=== PATIENT | female | born 1950 | race Caucasian/White ===

== ENCOUNTER 2025-05-20 14:51 | Outpatient (AMB) | payer MEDICARE, SELFPAY ==
--- NOTE | 2025-05-20 14:51 | HO.NEPHOV ---
Vital Signs 05/20/25 14:52 Height 5 ft 1 in Weight 122 lb BMI 23.0 BP 142/72 H Blood Pressure Location Lt brachial Position Sitting Pulse 88 Pulse Source Pulse Oximeter Pulse Oximetry (%) 97 Oxygen Delivery Method Room Air Intake Visit Reasons: ENP: CKD STAGE 3- Confirmed Drupal Php Developer Required: No Accompanied by: Self / Same As Patient Allergies labetalol Allergy (Unknown, Verified 05/20/25 14:55) asthma lisinopril Allergy (Unknown, Verified 05/20/25 14:55) Swelling spironolactone Allergy (Unknown, Verified 05/20/25 14:55) Unknown Medication List - Last Reconciled 05/20/25 by Rey Natarajan MD aspirin 81 mg PO DAILY calcium carbonate-vitamin D3 500 mg-10 mcg (400 unit) 1 tab PO BID carbamazepine 200 mg PO DAILY duloxetine 30 mg PO DAILY empagliflozin (Jardiance) 25 mg PO QAM famotidine 40 mg PO DAILY metformin 1,000 mg PO BID nateglinide 120 mg PO TID nifedipine ER 90 mg PO DAILY rosuvastatin 40 mg PO DAILY telmisartan 40 mg PO DAILY HPI Comments Details: - The patient is a 74-year-old female presenting with chronic kidney disease. - Chronic kidney disease managed by reexaminer for years at [place]. - Renal artery stent placed 8 years ago for hypertension. - Blood pressure control variable, occasional orthostatic symptoms. - Diabetes mellitus for 20-30 years, well-controlled. - History of asthma, currently inactive. - No other cardiac or pulmonary issues reported. - Medications include Jardiance, metformin, nifedipine, rosuvastatin, telmisartan, carbamazepine. - Last kidney ultrasound over a year ago, recent labs lacked kidney function tests. [facility] Medical History (Updated 05/20/25 @ 15:05 by Rey Natarajan MD) Left carotid artery stenosis Renal artery stenosis Stage 3 chronic kidney disease Osteoarthritis of glenohumeral joint Essential hypertension Dyslipidemia Type 2 diabetes mellitus without complication, without long-term current use of insulin Review of Systems Const Denies fever(s) and Denies weight loss Card Denies chest pain Resp Denies cough and Denies hemoptysis GI Denies abdominal pain, Denies diarrhea and Denies nausea Musc Denies back pain Neuro Denies focal weakness Physical Exam Vital Signs: Last Vital Signs Pulse 88 05/20/25 14:52 BP 142/72 H 05/20/25 14:52 Pulse Ox 97 05/20/25 14:52 Oxygen Delivery Method Room Air 05/20/25 14:52 BMI result Body Mass Index 23.0 Comfortable Neck supple no JVD. Lungs entry equal no rales. Heart S1-S2 heard no gallop or rub. Abdomen soft nontender. Neuro alert awake oriented. No asterixis. Extremities no edema. Results Reviewed Results Reviewed: Pending Assessment & Plan Assessment & Plan (1) Renal artery stenosis: Code(s): I70.1 - Atherosclerosis of renal artery Category: Medical (2) HTN (hypertension): Code(s): I10 - Essential (primary) hypertension Category: Medical (3) Stage 3 chronic kidney disease: Code(s): N18.30 - Chronic kidney disease, stage 3 unspecified Category: Medical Plan Elderly woman with a history of hypertension with renal artery stenosis and chronic kidney disease Status post stent placement on right renal artery and about 8 years ago. Initiated a baseline workup. Check basic renal panel Obtain Doppler of renal arteries. At present blood pressure is well controlled Encouraged her to stay on low-sodium diet. No changes were made to her medications today. Goal is to slow the progression of renal disease Continue to avoid nephrotoxic agents including NSAIDs Further workup will depend on the outcome of the baseline investigations. I have reassured her and answered all her questions. She returned to the office in the next few weeks and I will keep you updated. Orders: Orders Parathyroid Hormone Intact Today I10 - Essential (primary) hypertension, I70.1 - Atherosclerosis of renal artery UA and rflx microscopic Today I10 - Essential (primary) hypertension, I70.1 - Atherosclerosis of renal artery Total Protein Urine Random Today I10 - Essential (primary) hypertension, I70.1 - Atherosclerosis of renal artery Basic Metabolic Panel Today I10 - Essential (primary) hypertension, I70.1 - Atherosclerosis of renal artery Complete Blood Count no Diff Today I10 - Essential (primary) hypertension, I70.1 - Atherosclerosis of renal artery Creatinine Urine Today I10 - Essential (primary) hypertension, I70.1 - Atherosclerosis of renal artery Phosphorus Today I10 - Essential (primary) hypertension, I70.1 - Atherosclerosis of renal artery US renal doppler Today I10 - Essential (primary) hypertension, I70.1 - Atherosclerosis of renal artery Coding Level of Care Code New Pt Level 4 (34118) Diagnoses Renal artery stenosis I70.1 HTN (hypertension) I10 Stage 3 chronic kidney disease N18.30
[2025-05-20 14:52] VITALS: BP 142/72; PULSE 88; O2SAT 97; BMI 23.0
== END 2025-05-20 15:13 | disposition home or self-care (01) ==
LOC: HO.HKAE 14:51
PROVIDERS: PCP Student in an Organized Health Care Education/Training Program; Visit Provider Internal Medicine Hypertension Specialist
DX: I70.1 Atherosclerosis of renal artery (principal); I10 Essential (primary) hypertension; N18.30 Chronic kidney disease, stage 3 unspecified
CPT/HCPCS: 99204

== ENCOUNTER → 2025-05-20 14:51 | Outpatient (BNVA) | payer MEDICARE, SELFPAY | PROVIDERS: PCP Student in an Organized Health Care Education/Training Program; Visit Provider Internal Medicine Hypertension Specialist | DX: I10 Essential (primary) hypertension (principal); I70.1 Atherosclerosis of renal artery; N18.30 Chronic kidney disease, stage 3 unspecified | CPT/HCPCS: 99202 ==

== ENCOUNTER 2025-06-24 14:55 | Outpatient (AMB) | payer MEDICARE, SELFPAY ==
[2025-06-24 14:55] VITALS: BP 170/68; PULSE 75; O2SAT 98; BMI 23.6
--- NOTE | 2025-06-24 14:55 | HO.NEPHOV ---
Vital Signs 06/24/25 14:55 06/24/25 15:09 Height 5 ft 1 in Weight 125 lb BMI 23.6 BP 170/68 H 150/70 H Blood Pressure Location Lt brachial Lt brachial Position Sitting Sitting Pulse 75 Pulse Source Pulse Oximeter Pulse Oximetry (%) 98 Oxygen Delivery Method Room Air Intake Visit Reasons: 4-6wk f/u w/labs Podiatric Foot And Ankle Specialist Required: No Accompanied by: Self / Same As Patient Allergies labetalol Allergy (Unknown, Verified 06/24/25 14:57) asthma lisinopril Allergy (Unknown, Verified 06/24/25 14:57) Swelling spironolactone Allergy (Unknown, Verified 06/24/25 14:57) Unknown Medication List - Last Reconciled 06/24/25 by Rey Natarajan MD aspirin 81 mg PO DAILY calcium carbonate-vitamin D3 500 mg-10 mcg (400 unit) 1 tab PO BID carbamazepine 200 mg PO DAILY duloxetine 30 mg PO DAILY empagliflozin (Jardiance) 25 mg PO QAM famotidine 40 mg PO DAILY metformin 1,000 mg PO BID nateglinide 120 mg PO TID nifedipine ER 90 mg PO DAILY rosuvastatin 40 mg PO DAILY telmisartan 40 mg PO DAILY HPI Comments Details: - The patient is a 74-year-old female presenting with chronic kidney disease. - Chronic kidney disease managed by hat marker for years at [place]. - Renal artery stent placed 8 years ago for hypertension. - Blood pressure control variable, occasional orthostatic symptoms. - Diabetes mellitus for 20-30 years, well-controlled. - History of asthma, currently inactive. - No other cardiac or pulmonary issues reported. - Medications include Jardiance, metformin, nifedipine, rosuvastatin, telmisartan, carbamazepine. - Last kidney ultrasound over a year ago, recent labs lacked kidney function tests. 06/24/25 The patient is a 74-year-old female presenting with hypertension and renal artery stenosis. Her blood pressure was noted to be elevated at 160/60 mmHg during the visit, and she is currently on maximum doses of nifedipine and telmisartan. She reports occasional lightheadedness upon standing, indicative of orthostatic hypotension, which she manages by sitting down slowly. The patient has undergone an ultrasound which showed both renal arteries are open with no restenosis, indicating stable renal artery stenosis. Her creatinine level was measured at 1.2 mg/dL, which is being monitored for any changes. She is currently taking Jardiance, nifedipine, and telmisartan as part of her medication regimen. The patient checks her blood pressure at home occasionally, with recent readings around 150-160/78 mmHg, which she and the physician agree could be improved. [facility] Medical History (Updated 05/20/25 @ 15:05 by Rey Natarajan MD) Left carotid artery stenosis Renal artery stenosis Stage 3 chronic kidney disease Osteoarthritis of glenohumeral joint Essential hypertension Dyslipidemia Type 2 diabetes mellitus without complication, without long-term current use of insulin Physical Exam Vital Signs: Last Vital Signs Pulse 75 06/24/25 14:55 BP 150/70 H 06/24/25 15:09 Pulse Ox 98 06/24/25 14:55 Oxygen Delivery Method Room Air 06/24/25 14:55 BMI result Body Mass Index 23.6 Comfortable Neck supple no JVD. Lungs entry equal no rales. Heart S1-S2 heard no gallop or rub. Abdomen soft nontender. Neuro alert awake oriented. No asterixis. Extremities no edema. Results Reviewed Results Reviewed: Creatinine 1.2 Assessment & Plan Assessment & Plan (1) Renal artery stenosis: Code(s): I70.1 - Atherosclerosis of renal artery Category: Medical (2) HTN (hypertension): Code(s): I10 - Essential (primary) hypertension Category: Medical (3) Stage 3 chronic kidney disease: Code(s): N18.30 - Chronic kidney disease, stage 3 unspecified Category: Medical Plan Elderly woman with a history of hypertension with renal artery stenosis and chronic kidney disease Status post stent placement on right renal artery and about 8 years ago. Serum creatinine 1.2. His probably her baseline. Doppler ultrasonogram revealed less than 60% stenosis. No definite to hemodynamically significant narrowing. Encouraged her to stay on low-sodium diet. Encouraged to monitor blood pressure at home and to call me if systolic blood pressure stays above 140 No changes were made to her medications today. Goal is to slow the progression of renal disease Continue to avoid nephrotoxic agents including NSAIDs Orders: Orders Basic Metabolic Panel Today I10 - Essential (primary) hypertension, N18.30 - Chronic kidney disease, stage 3 unspecified Medications: New hydralazine 10 mg PO BID 60 tabs 1RF Coding Level of Care Code Est Pt Level 4 (20705) Diagnoses Renal artery stenosis I70.1 HTN (hypertension) I10 Stage 3 chronic kidney disease N18.30
[2025-06-24 15:09] VITALS: BP 150/70
--- OUTSIDE RECORDS SUMMARY | 2025-06-24 18:17 | XMS_ITS | Clinical Summary ---
Author Organization [facility] Address [address] [place] [address] Care Team Providers Care Cardiovascular Disease Specialist Name Role Phone Cony Dillon MD Primary Care Provider [phone] Allergies Active Allergy Reactions Criticality Noted Date Comments Lisinopril Swelling Medium 04/25/2016 Medications ONETOUCH VERIO strip 03/10/2016 Active INSULIN DETEMIR 100 UNIT/ML pen injection INJECT 36 UNITS ONCE DAILY PER SLIDING SCALE 3 04/08/2016 Active ketoconazole (NIZORAL) 2 % cream 03/10/2016 Active metFORMIN (GLUCOPHAGE) 1000 MG tablet TAKE 1 TABLET TWICE A DAY WITH MORNING AND EVEING MEALS 3 03/28/2016 Active nateglinide (STARLIX) 120 MG tablet TAKE 1 TABLET THREE TIMES A DAY 1 TO 30 MINUTES PRIOR TO MEALS 3 03/28/2016 Active NIFEdipine ER (ADALAT CC) 90 MG 24 hr tablet Take 90 mg by mouth daily. 3 03/07/2016 Active rosuvastatin (CRESTOR) 40 MG tablet 04/16/2016 Active spironolactone (ALDACTONE) 25 MG tablet Take 25 mg by mouth daily. 3 01/18/2016 Active spironolactone (ALDACTONE) 50 MG tablet 03/10/2016 Active telmisartan-hyd rochlorothiazid e (MICARDIS HCT) 40-12.5 MG per tablet Take 1 tablet by mouth daily. 3 03/29/2016 Active carBAMazepine (TEGretol) 200 MG tablet Take 200 mg by mouth 3 (three) times a day. Active aspirin enteric coated (ECOTRIN LOW STRENGTH) 81 MG EC tablet Take 81 mg by mouth daily. Active [place] 5-Erngci-Zjkhuc thin ([facility]) 250-2.5-0.5 MG Cap Take by mouth. Active Social History Tobacco Use Types Packs/Day Years Used Date Smoking Tobacco: Never Alcohol Use Standard Drinks/Week Comments No 0 (1 standard drink = 0.6 oz pur e alcohol) Comments Unknown Sex and Gender Information Value Date Recorded Sex Assigned at Not on file Legal Sex Female 11:46 AM EDT Gender Identity Not on file Sexual Orientation Not on file Last Filed Vital Signs Vital Sign Reading Time Taken Comments Blood Pressure 161/93 04/25/2016 2:47 PM EDT Pulse 92 04/25/2016 2:47 PM EDT Temperature - - Respiratory Rate - - Oxygen Saturation - - Inhaled Oxygen Concentration - - Weight 68 kg (150 lb) 04/25/2016 2:47 PM EDT Height 157.5 cm (5' 2 ) 04/25/2016 2:47 PM EDT Body Mass Index 27.44 04/25/2016 2:47 PM EDT Plan of Treatment Health Maintenance Due Date Last Done Comments Advance Care Planning 1950 Hepatitis C Virus Screening 1950 DTaP/Tdap/Td Vaccines (1 - Tdap) 1968 Mammogram 1989 Colonoscopy 1994 Pneumococcal Vaccines 50+ (1 of 1 - PCV) 11/24/1999 Zoster (Shingles) Vaccine (1 of 2) 11/24/1999 DXA Bone Density (Females,Ag es 65 and older) 2014 RSV Vaccine 50 years and old er and Patients (1 - 1-dose 75+ series) 2024 Influenza Vaccine 03/13/2025 COVID-19 Vaccine ( - 2023-2 5 season) 2025 Hepatitis B Vaccines Aged Out No long er eligible based on patient's age to complete this topic Procedures Procedure Name Priority Date/Time Associated Diagnosis Comments US KIDNEY WITH DOPPLER Routine 05/29/2025 4:14 PM EDT from Last 3 Months Results * US KIDNEY WITH DOPPLER (05/29/2025 4:14 PM EDT) Anatomical Region Laterality Modality Other 05/29/2025 2:45 PM EDT 05/29/2025 2:45 PM EDT Narrative 06/01/2025 1:18 PM EDT EXAMINATION: US RENAL ARTERY DOPPLER CLINICAL INFORMATION: Renal artery stenosis. COMPARISON: None. TECHNIQUE: Renal ultrasound. Doppler ultrasound (spectral analysis and color Doppler) of the renal arteries and aorta were performed. FINDINGS: The right kidney measures 7.6, 3.7, 3.3 cm in sagittal, AP and transverse dimensions. Increased echogenicity. 1.9 cm simple cyst in the lower pole. The left kidney measures 10.3, 5.0, 4.4 cm in sagittal, AP and transverse dimensions. The kidneys show no masses, calculi or hydronephrosis. The corticomedullary differentiation is normal. RENAL ARTERY VELOCITIES: Right: Proximally: 61. Mid: 49. Distal: 44. Left: Proximally: 49. Mid: 191. Distally: 309. SEGMENTAL RESISTIVE INDICES: Right: Upper: 0.7 Mid: 0.8 Lower: 0.7 Left: Upper: 0.7 Mid: 0.8 Lower: 0.7 MID AORTIC VELOCITY: 98 cm/s. RENAL AORTIC RATIOS: Right: 0.6 Left: 3.1 Technologist: Sofia IMPRESSION: 1. Increased echogenicity of the right kidney likely related to medical renal disease. 2. Increased velocities in the mid to distal segments of the left renal artery may be related to less than 60% stenosis. No parvus tardus waveforms in the segmental arteries. Electronically signed by: Navarro Ayon DO 06/01/2025 01:18 PM EDT Thank you for referring your patient to us, Navarro Ayon MD [phone] (Electronically Signed - 06/01/2025 13:18) Procedure Note Mal Ayon DO - 06/01/2025 EXAMINATION: US RENAL ARTERY DOPPLER CLINICAL INFORMATION: Renal artery stenosis. COMPARISON: None. TECHNIQUE: Renal ultrasound. Doppler ultrasound (spectral analysis and color Doppler)of the renal arteries and aorta were performed. FINDINGS: The right kidney measures 7.6, 3.7, 3.3 cm in sagittal, AP and transversedimensions. Increased echogenicity. 1.9 cm simple cyst in the lowerpole. The left kidney measures 10.3, 5.0, 4.4 cm in sagittal, AP and transversedimensions. The kidneys show no masses, calculi or hydronephrosis. Thecorticomedullary differentiation is normal. RENAL ARTERY VELOCITIES: Right: Proximally: 61. Mid: 49. Distal: 44. Left: Proximally: 49. Mid: 191. Distally: 309. SEGMENTAL RESISTIVE INDICES: Right: Upper: 0.7 Mid: 0.8 Lower: 0.7 Left: Upper: 0.7 Mid: 0.8 Lower: 0.7 MID AORTIC VELOCITY: 98 cm/s. RENAL AORTIC RATIOS: Right: 0.6 Left: 3.1 Technologist: Sofia IMPRESSION: 1. Increased echogenicity of the right kidney likely related to medicalrenal disease. 2. Increased velocities in the mid to distal segments of the left renalartery may be related to less than 60% stenosis. No parvus tarduswaveforms in the segmental arteries. Electronically signed by: Navarro Ayon DO 06/01/2025 01:18 PM EDT RPWorkstation: [id number] Thank you for referring your patient to us, Navarro Ayon MD [phone] (Electronically Signed - 06/01/2025 13:18) Rey Natarajan MD IMG LEGACY PROCEDURES Final Re sult from Last 3 Months Insurance [facility] MEDICARE Care Teams Cardiovascular Disease Specialist Relationship Specialty Start Date End Date Cony Dillon MD [address] [place] [id number] PCP - General 03/07/16
--- OUTSIDE RECORDS SUMMARY | 2025-06-24 18:17 | XMS_ITS | Encounter Summary ---
Author Organization [facility] Address [address] [place] [address] Care Team Providers Care Subpoena Server Name Role Phone Cony Dillon MD Primary Care Provider [phone] Linda Ayon MD Unavailable Mary Simon MD Unavailable [phone] MetersRm palomares MD Unavailable [phone] Cony Dillon MD Unavailable [phone] Barbara Olivares MD Primary Care Provider [phone] Encounter Details Date Type Department Care Team (Late st Contact Info) Description 11/07/2021 Orders Only [facility] Department of Nephrology [address] [facility] [place] [address] Delmy Mcmullen MD Social History Tobacco Use Types Packs/Day Years Used Date Smoking Tobacco: Never Smokeless Tobacco: Never Alcohol Use Standard Drinks/Week Comments No 0 (1 standard drink = 0.6 oz pur e alcohol) PHQ-2 Answer Date Recorded PHQ-2 Score 0 12/16/2020 Comments No Sex and Gender Information Value Date Recorded Sex Assigned at Female 10/26/2023 11:07 AM EDT Legal Sex Female 2:23 AM EST Gender Identity Female 10/26/2023 11:07 AM EDT Sexual Orientation Straight 10/26/2023 11 :07 AM EDT Occupation Industry Job Start Date Job End Date Retired Not on file Not on file Not on file COVID-19 Exposure Response Date Recorded In the last 10 days, have yo u been in contact with someone who was confirmed or suspected to have Coronavirus/COVID-19? No / Unsure 10/31/2021 1:08 PM EDT documented as of this encounter Plan of Treatment Not on file documented as of this encounter Visit Diagnoses Not on filedocumented in this encounter Additional Health Concerns Infection Onset Date Last Indicated Resolved Time (Rule out) Influenza 06/07/2024 06/07/2024 024 11:06 PM EDT (Rule out) RSV 06/07/2024 06/07/2024 06/07/2024 11 :06 PM EDT (Rule out) COVID-19 06/07/2024 06/07/2024 06/07/20 24 11:06 PM EDT documented as of this encounter Care Teams Subpoena Server Relationship Specialty Start Date End Date Cony Dillon MD [address] [facility] [place] [address] PCP - General 10/24/17 11/12/24 Cony Dillon MD [address] [facility] [place] [address] PCP - Insurance Payer PCP 05/18/23 Barbara Olivares MD [address] [place] [address] PCP - General Family Medicine 11/13/24 Linda Ayon MD [address] [facility] [place] [address] Consulting Physician Cardiology 04/19/20 Mary Simon MD [address] [facility] [place] [phone] Consulting Physician Endocrinology 04/19/20 Rm Avery MD [address] [facility] [address] Consulting Physician Pulmonary Disease 04/19/20 documented as of this encounter
--- OUTSIDE RECORDS SUMMARY | 2025-06-24 18:17 | XMS_ITS | Encounter Summary ---
Author Organization [facility] Address [address] [place] [address] Care Team Providers Care Press Operator Printing Name Role Phone Cony Dillon MD Primary Care Provider [phone] Linda Ayon MD Unavailable Mary Simon MD Unavailable [phone] MetersRm palomares MD Unavailable [phone] Cony Dillon MD Unavailable [phone] Barbara Olivares MD Primary Care Provider Encounter Details Date Type Department Care Team (Late st Contact Info) Description 05/17/2021 Orders Only [facility] Department of Internal Medicine [address] [place], [place] [id number] Cony Dillon MD [address] [facility] - INTER[facility] MEDICINE [place], [place] [id number] Upper respiratory tract infection, unspecified type (Primary Dx) Social History Tobacco Use Types Packs/Day Years [...] file Not on file Not on file documented as of this encounter Plan of Treatment Not on file documented as of this encounter Results * SARS-CoV-2, NAAT (05/18/2021 8:17 AM EDT) SARS-CoV-2 TMA ([place]) Not Detected Not Detected 05/18/2021 3:09 PM EDT [facility] Comment: This test has not been FDA cleared or approved. This test has been authorized by the FDA under an EUA for use by authorized laboratories. Testing is limited to laboratories certified under the Clinical Laboratory Improvement Amendments of 1988 (CLIA), 42 U.S.C. 263a, to perform high complexity tests. The test is only authorized for the duration of the declaration that circumstances exist justifying the authorization of emergency use of in vitro diagnostic tests for detection and/or diagnosis of COVID-19 under Section 564(b)(1) of the Act, 21 U.S.C. 360bbb-3(b)(1), unless the authorization is terminated or revoked sooner. The Aptima SARS-CoV-2 Assay is a nucleic acid amplification test intended for the qualitative detection of nucleic acid of SARS-CoV-2 in nasal and nasopharyngeal swab specimens from patients suspected of COVID-19. Positive results are indicative of the presence of SARS-CoV-2 RNA; clinical correlation with patient history and other diagnostic information is necessary to determine patient infection status. Positive results do not rule out bacterial infection or co-infection with other viruses. A negative result does not rule out COVID-19 and should not be used as the sole basis for treatment or patient management decisions. Negative results must be combined with clinical observations, patient history, and epidemiological information. Fact Sheets for this Emergency Use Authorization assay can be found at the following links: For Healthcare providers: [email or web address].[employer]/sites/default/[email or web address] -Apti [email or web address] For Patients: [email or web address]/sites/default/[email or web address] [email or web address] Swab Nasopharyngeal structure / Unknown Non-blood Collection / Unknown 05/18/2021 8:17 AM EDT 05/18/2021 8:17 AM EDT Cony Dillon MD LAB MICRO - GENERAL ORDERABLE S NO STAT Final Result [facility] [address] [place] [address], documented in this encounter Visit Diagnoses Diagnosis Upper respiratory tract infection, unspecified type- Primary documented in this encounter Additional Health Concerns Infection Onset Date Last Indicated Resolved Time (Rule out) COVID-19 05/17/2021 05/18/2021 05/18/20 21 3:09 PM EDT (Rule out) COVID-19 09/29/2021 09/29/2021 10/03/19 22 10:08 PM EST (Rule out) Influenza 06/07/2024 06/07/2024 024 11:06 PM EDT (Rule out) RSV 06/07/2024 06/07/2024 06/07/2024 11 :06 PM EDT (Rule out) COVID-19 06/07/2024 06/07/2024 06/07/20 24 11:06 PM EDT documented as of this encounter Care Teams Press Operator Printing Relationship Specialty Start Date End Date Cony Dillon MD [address] [place] [address] [place] [address] PCP - General 10/24/17 11/12/24 Cony Dillon MD [address] [place] [address] [place] [address] PCP - Insurance Payer PCP 05/18/23 Barbara Olivares MD [address] [place], [place] [id number] PCP - General Family Medicine 11/13/24 Linda Ayon MD [address] [place], [place] [address] [phone] Consulting Physician Cardiology 04/19/20 Mary Simon MD [address] [place] [address] [address] Consulting Physician Endocrinology 04/19/20 Rm vAery MD [address] [place] [address] [address] Consulting Physician Pulmonary Disease 04/19/20 documented as of this encounter
--- OUTSIDE RECORDS SUMMARY | 2025-06-24 18:17 | XMS_ITS | Encounter Summary ---
Author Organization [facility] Address [address] [place] [address] Care Team Providers Care Maintenance Apprentice Name Role Phone Cony Dillon MD Primary Care Provider [phone] Encounter Details Date Type Department Care Team (Late st Contact Info) Description 03/15/2016 Scanned Document [facility] Urologic Surgery [address] [place] [address] Yung Proctor MD Social History Tobacco Use Types Packs/Day Years Used Date Smoking Tobacco: Never Assessed Comments Unknown Sex and Gender Information Value Date Recorded Sex Assigned at Not on file Legal Sex Female 11:46 AM EDT Gender Identity Not on file Sexual Orientation Not on file documented as of this encounter Plan of Treatment Not on file documented as of this encounter Visit Diagnoses Not on filedocumented in this encounter Care Teams Maintenance Apprentice Relationship Specialty Start Date End Date Cony Dillon MD [address] [place] [address] PCP - General 03/07/16 documented as of this encounter
--- OUTSIDE RECORDS SUMMARY | 2025-06-24 18:17 | XMS_ITS | Encounter Summary ---
Author Organization [facility] Address [address] [place] [address] Care Team Providers Care Paper Stripper Name Role Phone Cony Dillon MD Primary Care Provider [phone] Linda Ayon MD Unavailable Mary Simon MD Unavailable [phone] MetersRm palomares MD Unavailable [phone] Cony Dillon MD Unavailable [phone] Barbara Olivares MD Primary Care Provider [phone] Encounter Details Date Type Department Care Team (Late st Contact Info) Description 09/24/2023 Orders Only [facility] Department of Internal Medicine [address] [place] [phone] Cony Dillon MD [address] [place] [address] - INTERNAL MEDICINE [place], [place] [phone] Labile hypertension (Primary Dx) Social History Tobacco Use Types Packs/Day Years Used Date Smoking Tobacco: Never Passive Smoke Exposure: Past Smokeless Tobacco: Never Passive Exposure Comments:fa ther smoked in the home Alcohol Use Standard Drinks/Week Comments No 0 (1 standard drink = 0.6 oz pur e alcohol) PHQ-2 Answer Date Recorded PHQ-2 Score 0 04/24/2023 Exercise Vital Sign Answer Date Recorde d On average, how many days pe r week do you engage in moderate to strenuous exercise (like a brisk walk)? 7 days Minutes of Exercise per Session Not on file 04/24/2023 Hunger Vital Sign Answer Date Recorded Within the past 12 months, y ou worried that your food would run out before you got the money to buy more. Never true 04/24/20 23 Ran Out of Food in the Last Year Not on file 04/24/2023 PRAPARE - Transportation Answer Date Re corded In the past 12 months, has l ack of transportation kept you from medical appointments or from getting medications? No 04/24/2023 Lack of Transportation (Non-Medical) Not on file 04/24/2023 Housing Stability Vital Sign Answer Tyson e Recorded Unable to Pay for Housing in the Last Year Not o n file 04/24/2023 [address] of [address] Lived in the Last Year Not on f ile 04/24/2023 In the last 12 months, was t here a time when you did not have a steady place to sleep or slept in a mcc (including now)? No 04/24/2023 Comments No Sex and Gender Information Value Date Recorded Sex Assigned at Female 10/26/2023 11:07 AM EDT Legal Sex Female 2:23 AM EST Gender Identity Female 10/26/2023 11:07 AM EDT Sexual Orientation Straight 10/26/2023 11 :07 AM EDT Occupation Industry Job Start Date Job End Date Retired [employer] Not on file Not on file Not on file COVID-19 Exposure Response Date Recorded In the last 10 days, have yo u been in contact with someone who was confirmed or suspected to have Coronavirus/COVID-19? No / Unsure 09/20/2023 10:57 AM EST documented as of this encounter Plan of Treatment Not on file documented as of this encounter Visit Diagnoses Diagnosis Labile hypertension- Primary documented in this encounter Additional Health Concerns Infection Onset Date Last Indicated Resolved Time (Rule out) Influenza 06/07/2024 06/07/2024 024 11:06 PM EDT (Rule out) RSV 06/07/2024 06/07/2024 06/07/2024 11 :06 PM EDT (Rule out) COVID-19 06/07/2024 06/07/2024 06/07/20 24 11:06 PM EDT documented as of this encounter Care Teams Paper Stripper Relationship Specialty Start Date End Date Cony Dillon MD [address] [place] [address] [place] [address] PCP - General 10/24/17 11/12/24 Cony Dillon MD [address] [facility] [place] [address] PCP - Insurance Payer PCP 05/18/23 Barbara Olivares MD [address] [place], [place] [id number] PCP - General Family Medicine 11/13/24 Linda Ayon MD [address] [place], [place] [address] [phone] Consulting Physician Cardiology 04/19/20 Mary Simon MD [address] [place] [address] [phone] Consulting Physician Endocrinology 04/19/20 Rm Avery MD [address] [place] [address]-PULMONARY MEDICINE [place] [phone] Consulting Physician Pulmonary Disease 04/19/20 documented as of this encounter
--- OUTSIDE RECORDS SUMMARY | 2025-06-24 18:17 | XMS_ITS | Clinical Summary ---
Author Organization [facility] Address [address] [place] [address] Care Team Providers Care High Lift Operator Name Role Phone Linda Ayon MD Unavailable Mary Simon MD Unavailable [phone] MetersRm palomares MD Unavailable [phone] Cony Dillon MD Unavailable [phone] Barbara Olivares MD Primary Care Provider [phone] Allergies Active Allergy Reactions Criticality Noted Date Comments Labetalol 11/11/2018 Asthma exacerbation Lisinopril Swelling Medium 08/25/2010 Lips swell Spironolactone 11/11/2018 Hyperkalemia Medications multivitamin (THERAGRAN) tablet Take by mouth daily. 017 Active cholecalciferol, vitamin D3, 2,000 unit tablet Take by mouth daily. Active aspirin (ASPIRIN LOW DOSE) 81 mg EC tablet Take 1 tablet (81 mg total) by mouth daily. 90 tablet 3 018 Active epinastine 0.05 % ophthalmic solution Administer 1 drop into both eyes 2 (two) times a day. 018 Active acetaminophen (TYLENOL) 500 mg tablet Take 500 mg by mouth every 6 (six) hours as needed for mild pain (1-3). Active lancets (ACCU-CHEK MULTICLIX LANCET) misc test bid 200 each 3 019 Active docosahexaenoic acid/epa (FISH OIL ORAL) Take by mouth daily. Active vit A/C/E ac/ZnOx/cupric oxide (EYE VITAMIN AND MINERALS ORAL) Take by mouth. With lutein Active diclofenac sodium (VOLTAREN) 1 % gelIndications:Oste oarthritis of knee, unspecified laterality, unspecified osteoarthritis type Apply topically to the affected area four times a day 100 g 023 Active azelastine (OPTIVAR) 0.05 % ophthalmic solution 023 Active famotidine (PEPCID) 40 mg tablet 024 Active ketoconazole (NIZORAL) 2 % creamIndications:Fu ngal infection Apply to affected area twice daily 30 g 024 Active rosuvastatin (CRESTOR) 40 mg tablet take 1 tablet by mouth at bedtime 30 tablet 024 Active Lumigan 0.01 % ophthalmic drops INSTILL 1 DROP INTO EACH EYE AT BEDTIME 024 Active carBAMazepine (TEGretol) 200 mg tabletIndications:S eizures (HCC) Take 1 tablet by mouth every day 30 tablet 024 Active nateglinide (STARLIX) 120 mg tabletIndications:T ype 2 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 Take before meals. 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 Take with meals. 180 tablet 025 Active diclofenac sodium (VOLTAREN) 1 % gelIndications:Oste oarthritis of knee, unspecified laterality, unspecified osteoarthritis type Apply topically 4 (four) times a day. 200 g 025 Active Additional Information Patient not taking.Reported on 10/24/2024 blood sugar diagnostic ([employer] test strips) stripIndications:Ty pe 2 diabetes mellitus without complication, with long-term current use of insulin (HCC) USE 1 TEST STRIP TO CHECK GLUCOSE 3 TIMES DAILY 300 strip 025 Active NIFEdipine CC (ADALAT CC) 90 mg 24 hr tablet Take 1 tablet by mouth every morning 30 tablet 11 025 Active ferrous sulfate 325 mg (65 mg iron) EC tablet Take 1 tablet (325 mg total) by mouth in the morning. 90 tablet 1 025 Active Additional Information Patient not taking.Reported on 11/13/2024 DULoxetine (CYMBALTA) 30 mg capsuleIndications: Cervical stenosis of spinal canal Take 1 capsule by mouth every day 30 capsule 025 Active telmisartan (MICARDIS) 40 mg tabletIndications:L abile hypertension Take 1 tablet by mouth every morning 30 tablet 11 025 Active Jardiance 25 mg tablet TAKE 1 TABLET BY MOUTH IN THE MORNING 90 tablet 025 Active Jardiance 25 mg tablet TAKE 1 TABLET BY MOUTH IN THE MORNING 90 tablet 025 2024 Discontinued Active Problems Problem Noted Date Diagnosed Date Calcific tendonitis of left shoulder 03/20/2024 Rotator cuff arthropathy of left shoulder 2023 Osteoarthritis of glenohumeral joint, left 12/19 Gastroesophageal reflux disease without esophagi tis 01/27/2022 Overview (01/27/2022): 01/01 - symptoms resolved Persistent proteinuria 04/29/2020 Assessment & Plan (12/21/2021 10:51 AM EDT): Improved OA Assessment & Plan (12/16/2020 10:27 AM EDT): Was followed by nephrology Left carotid artery stenosis 02/21/2019 Assessment & Plan (12/21/2021 10:49 AM EDT): Stable never had surgery or TIA Assessment & Plan (12/16/2020 10:25 AM EDT): Followed by cardiology for this never had surgery (Dr. Ayon) Cervical stenosis of spinal canal 12/24/2018 Assessment & Plan (12/21/2021 10:48 AM EDT): Chronic pain - uses topical voltaren Assessment & Plan (12/16/2020 10:23 AM EDT): Chronic pain Spondylolisthesis at L4-L5 level 12/24/2018 Overview (02/21/2019): Declines shots/ physical therapy Encounter for annual wellnes s visit (AWV) in Medicare patient 05/19/2018 Overview (12/16/2020): CARE TEAM - CHRISTIANO MCMILLAN BERKOWITZ, TUNCEL-ANTHONY COLONOSCOPY 10/28 - CHRISTIANO Mammogram 12/13 Renal artery stenosis 09/18/2016 Assessment & Plan (01/27/2022 9:49 AM EDT): Continue telmisartan, doxazocin and nifedipine Assessment & Plan (12/21/2021 10:52 AM EDT): Followed by Dr. Ayon Assessment & Plan (12/16/2020 10:28 AM EDT): Stents placed by Dr. Ayon Kidney stone 03/03/2016 Overview (02/21/2019): Hospitalized [facility] - renal stone Assessment & Plan (12/21/2021 10:48 AM EDT): None recently The last one was 2016 Osteoarthritis of ankle or foot 01/01/2015 Asthma 10/13/2010 Assessment & Plan (12/21/2021 10:47 AM EDT): Under excellent control - occasion wheeze Assessment & Plan (12/16/2020 10:23 AM EDT): Stable winter no flares Type 2 diabetes mellitus wit h both eyes affected by mild nonproliferative retinopathy without macular edema, with long-term current use of insulin 08/25/2010 Overview (09/01/2019): starlix decrease and not waking at night Mild diabetic peripheral relative retinopathy Assessment & Plan (12/21/2021 10:53 AM EDT): Add the jardiance 10mg Assessment & Plan (12/16/2020 10:29 AM EDT): a1c 7.0 Obstructive sleep apnea syndrome 08/25/2010 Overview (06/17/2021): Renew machine 2010 Assessment & Plan (12/21/2021 10:51 AM EDT): Recalled machine - humidified Assessment & Plan (12/16/2020 10:27 AM EDT): CPAP and doing well - needs a new machine which is 10 years old - seeing INES Avery Dyslipidemia 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 Assessment & Plan (12/21/2021 10:52 AM EDT): Stable on tegretol Vitamin D deficiency Assessment & Plan (12/16/2020 10:29 AM EDT): She is on vitamin D Hypercalcemia Overview (12/16/2017): mild Assessment & Plan (12/21/2021 10:48 AM EDT): Followed by nephrology Resolved Problems Problem Noted Date Diagnosed Date Resolved Date Neurogenic claudication due to lumbar spinal stenosis 12/24/2018 12/21/2021 Assessment & Plan (12/21/2021 10:50 AM EDT): Back is stable Assessment & Plan (12/16/2020 10:26 AM EDT): Feet and ankles Labile hypertension 09/18/2016 12/03/19 25 Assessment & Plan (12/21/2021 10:49 AM EDT): 12/02 - stopped the nifedipine Assessment & Plan (12/16/2020 10:24 AM EDT): Followed by nephrology Electrocardiogram abnormal 09/17/2015 1 Mucous polyp of cervix 05/20/201304/15 Immunizations Immunization Administration Dates Next Due Flu Vacc FLUZONE High Dose 04/28/2024 Influenza (IM) Preservative Free 05/04/2014,05/13,05/29/2011 Influenza TIV (IM) 06/21/2019,05/20/2013, 011 Influenza Vaccine 65y and older 06/01/20 23,06/17/2021,05/01/2020,05/01/20 17,06/28/2015 Influenza, Quadrivalent 05/29/2016 PNEUMOCOCCAL CONJUGATE PCV-20 12/21/2021 Pneumococcal Conjugate PCV-13 02/28/2016 Pneumococcal Polysaccharide PCV-23 01/01/2017, RSV Bivalent 03/29/2024 Shingrix (Zoster Recombinant) 05/01/2020, 020 Td 11/08/1998 Tdap 03/29/2024,08/24/2014 Family History Medical History Relation Comments Coronary artery disease Brother Coronary artery disease Father Heart disease Father Cancer Mother breast cancer Coronary artery disease Mother Heart disease Mother Liver disease Sister Alcohol abuse Son Relation Status Comments Brother Father Mother Sister Son Alive Social History Tobacco Use Types Packs/Day Years Used Date Smoking Tobacco: Never Passive Smoke Exposure: Past Smokeless Tobacco: Never Tobacco Cessation:Counseling Given: Not Answered Passive Exposure Comments:father smoked in the home Alcohol Use Standard Drinks/Week Comments No 0 (1 standard drink = 0.6 oz pur e alcohol) [facility] Utilities Answer Date Recorded In the past 12 months has e electric, gas, oil, or water company threatened to shut off services in your home? No 05/26/2024 Overall Financial Resource Strain (CARDIA) Answe r Date Recorded How hard is it for you to pa y for the very basics like food, housing, medical care, and heating? Not hard at all 05/26/2024 PHQ-2 Answer Date Recorded PHQ-2 Score 0 05/26/2024 Exercise Vital Sign Answer Date Recorde d On average, how many days pe r week do you engage in moderate to strenuous exercise (like a brisk walk)? 2 days 05/26/2024 On average, how many minutes do you engage in exercise at this level? 30 min 05/26/2024 Hunger Vital Sign Answer Date Recorded Within the past 12 months, y ou worried that your food would run out before you got the money to buy more. Never true 05/26/20 24 Within the past 12 months, t he food you bought just didn't last and you didn't have money to get more. Never true 05/26/2024 PRAPARE - Transportation Answer Date Re corded In the past 12 months, has l ack of transportation kept you from medical appointments or from getting medications? No 05/26/2024 Lack of Transportation (Non-Medical) Not on file 05/26/2024 Housing Stability Vital Sign Answer Tyson e Recorded Unable to Pay for Housing in the Last Year Not o n file 04/24/2023 [address] of [address] Lived in the Last Year Not on f ile 04/24/2023 In the last 12 months, was t here a time when you did not have a steady place to sleep or slept in a assisted (including now)? No 04/24/2023 Housing Stability Vital Sign Answer Tyson e Recorded In the last 12 months, was t here a time when you were not able to pay the mortgage or rent on time? No 05/26/2024 In the past 12 months, how m any times have you moved where you were living? 0 05/26/2024 At any time in the past 12 m [facility], were you homeless or living in a assisted (including now)? No 05/26/2024 Comments No Sex and Gender Information Value Date Recorded Sex Assigned at Female 10/26/2023 11:07 AM EDT Legal Sex Female 2:23 AM EST Gender Identity Female 10/26/2023 11:07 AM EDT Sexual Orientation Straight 10/26/2023 11 :07 AM EDT Occupation Industry Job Start Date Job End Date Retired [employer] Not on file Not on file Not on file Last Filed Vital Signs Vital Sign Reading Time Taken Comments Blood Pressure 152/83 11/13/2024 1:16 PM EDT Pulse 87 11/13/2024 1:16 PM EDT Temperature 36.2 C (97.2 F) 08/26/2024 3:16 PM EST Respiratory Rate 15 10/15/2024 10:46 AM EST Oxygen Saturation 98% 08/26/2024 3:16 PM EST Inhaled Oxygen Concentration - - Weight 55.3 kg (122 lb) 10/15/2024 10:46 AM EST Height 154.9 cm (5' 1 ) 10/15/2024 10:46 AM EST Body Mass Index 23.05 10/15/2024 10:46 AM EST Plan of Treatment Health Maintenance Due Date Last Done Comments CT Colonography 1949 FIT-DNA (Cologuard) 1950 FIT 1950 FOBT 1950 Flex Sigmoidoscopy - 4y 1950 Diabetes: Retinopathy Screening 11/24/1967 COVID-19 Vaccine ( season) 2025 04/28/2024, 06/01/2023, 06/15/2022, Additional history exists Influenza Vaccine (#1) 2025 , 06/01/2023, 06/15/2022, Additional history exists Medicare Annual Wellness (AWV) 05/27/2025 05/26/2024, 04/24/2023, 12/21/2021, Additional history exists Diabetes: Kidney Health Evaluation 10/15/2025 10/15/2024 Diabetes: Hemoglobin A1C 10/20/2025 025, 01/13/2025, 08/26/2024, Additional history exists Colonoscopy 10/12/2027 10/11/2017 Colorectal Cancer Screening 10/12/2027 DTaP,Tdap,and Td Vaccines (3 - Td or Tdap) 03/29/2034 03/29/2024, 08/24/2014, 11/08/1998 HIV Screening Completed 10/31/2021 Hepatitis C Screening Completed 10/31/2021, 017 Pneumococcal Vaccine, 50+ Years Completed 12/21/2021, 01/01/2017, 02/28/2016, Additional history exists Breast Cancer Screening Discontinued 05/23/20 23 (Done Elsewhere - With Results), 2021 (Done Elsewhere - With Results), 12/09/2020 (Done Elsewhere - With Results), Additional history exists Bone Density Screening Completed 4 (Done Elsewhere - With Results) Diabetes: Urine Microalbumin Discontinued 10/15/2024, 04/17/2024, 08/10/2023, Additional history exists Zoster Vaccines Completed 12/09/2024, 04/13, 04/13/2020 HPV Vaccines Aged Out No longer eligi ble based on patient's age to complete this topic Hepatitis A Vaccines Aged Out No long er eligible based on patient's age to complete this topic Meningococcal Vaccine Aged Out No negar lawanda eligible based on patient's age to complete this topic Procedures Procedure Name Priority Date/Time Associated Diagnosis Comments MICROALBUMIN, URINE, RANDOM WITH CREATININE Routine 10/15/2024 2:49 PM EST Stage 3a chronic kidney disease (HCC) HEMOGLOBIN A1C Routine 08/26/2024 3:40 PM EST Type 2 diabetes mellitus with both eyes affected by mild nonproliferative retinopathy without macular edema, with long-term current use of insulin (HCC) HEPATITIS C ANTIBODY Routine 10/31/2021 1:12 PM EDT Left renal artery stenosis (HCC) Stage 3a chronic kidney disease (HCC) Renovascular hypertension Diabetic nephropathy associated with diabetes mellitus due to underlying condition (HCC) HIV COMBO ANTIGEN/ANTIBODY Routine 10/31/2021 1:12 PM EDT Left renal artery stenosis (HCC) Stage 3a chronic kidney disease (HCC) 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 Interpretation of results is at the discretion of the ordering physician. Microalbumin, Urine, Random 120.5 mg/dL 10/15/2024 3:55 PM EST [facility] Microalbumin/Creat Ratio 2,410(H) 2 - 20 mg/g Creat 10/15/2024 3:55 PM EST [facility] Urine Urine specimen / Unknown Non-blood Collection / Unknown 10/15/2024 2:49 PM EST 10/15/2024 2:58 PM EST us Lucia Norris PIECE WORK INSPECTOR LAB URINE ORDERABLES Final R esult Performing Organization Address City/[facility]/ZIP Co de Phone Number [facility] [address] [place] [address], * (ABNORMAL) Hemoglobin A1c (08/26/2024 3:40 PM EST) Hemoglobin A1C 10.3(H) 4.4 - 6.4 % 08/26/2024 6:44 PM EST [facility] Blood Venous blood specimen / Unknown Venipuncture / Unknown 08/26/2024 3:40 PM EST 08/26/2024 3:42 PM EST Narrative [facility] - 08/26/2024 6:44 PM EST HbA1C greater than or equal to 6.5% diagnosis for Diabetes Mellitus. In the absence of unequivocal hyperglycemia, test should be confirmed by repeat testing. ADA Guidelines: Diagnosis and Classification of Diabetes Mellitus (position statement), Diabetes Care 2010; 33:S62-9. Hemoglobin A1C results may be inaccurate if abnormal hemoglobins are present. us Kirstie Cameron PIECE WORK INSPECTOR LAB BLOOD ORDERABLES NO STAT Fi nal Result Performing Organization Address City/[facility]/ZIP Co de Phone Number [facility] [address] [place] [address], [place] [phone] * HIV combo antigen/antibody (10/31/2021 1:12 PM EDT) HIV Combo AB/AG Negative Negative 10/31/2021 2:28 PM EDT [facility] Blood Venous blood specimen / Unknown Venipuncture / Unknown 10/31/2021 1:12 PM EDT 10/31/2021 1:22 PM EDT Narrative [facility] - 10/31/2021 2:28 PM EDT This test is a 4th generation HIV Antigen-Antibody Combination assay, using a chemiluminescent microparticle immunoassay, for the simultaneous qualitative detection of human immuno- deficiency virus (HIV) p24 antigen and antibodies to HIV type 1 (HIV-1) and/or HIV type 2 (HIV-2) in human serum or plasma. The [employer] Consultant HIV Ag/Ab Combo assay is intended to be used as an aid in the diagnosis of HIV-1 and/or HIV-2 infection, including acute or primary HIV-1 infection. Initially-positive tests are repeated in duplicate. Repeat-positive tests will be confirmed for HIV by a HIV-1/HIV-2 rapid supplemental/ differentiation antibody assay. This testing algorithm is in line with the current CDC recommendations. us Delmy Mcmullen MD LAB BLOOD ORDERABLES NO STAT Fi nal Result [facility] [address] [place] [address], [place] [phone] * Hepatitis C antibody (10/31/2021 1:12 PM EDT) Pathologist [facility] Hepatitis C Antibody Negative Negative 10/31/2021 2:32 PM EDT [facility] Comment:Anti-HCV (HCVAb) Not Detected. Patient is presumed not to be infected with HCV. The possibility of exposure to HCV cannot be excluded. Blood Venous blood specimen / Unknown Venipuncture / Unknown 10/31/2021 1:12 PM EDT 10/31/2021 1:22 PM EDT us Delmy Mcmullen MD LAB BLOOD ORDERABLES NO STAT Fi nal Result [facility] [address] [place] [address], from Last 3 Months or Most Recently Relevant to Health Maintenance Insurance MEDICAID [facility] [employer] MANAGED MEDICARE HMO Care Teams High Lift Operator Relationship Specialty Start Date End Date Cony Dillon MD [address] [place] [address] - [place] [address] PCP - Insurance Payer PCP 05/18/23 Barbara Olivares MD [address] [place] [id number] PCP - General Family Medicine 11/13/24 Linda Ayon MD [address] [facility] [place] [phone] Consulting Physician Cardiology 04/19/20 Mary Simon MD [address] [place] [address] [phone] Consulting Physician Endocrinology 04/19/20 Rm Avery MD [address] [place] [address]-[place] [address] Consulting Physician Pulmonary Disease 04/19/20
--- OUTSIDE RECORDS SUMMARY | 2025-06-24 18:17 | XMS_ITS | Encounter Summary ---
Author Organization [facility] Address [address] [place] [address] Care Team Providers Care Cuffer Name Role Phone Cony Dillon MD Primary Care Provider [phone] Linda Ayon MD Unavailable Mary Simon MD Unavailable [phone] MetersRm palomares MD Unavailable [phone] Cony Dillon MD Unavailable [phone] Barbara Olivares MD Primary Care Provider [phone] Encounter Details Date Type Department Care Team (Late st Contact Info) Description 02/01/2024 Orders Only [facility] Department of Internal Medicine [address] [place], [place] [id number] Cony Dillon MD 65 [facility] - INTERNAL MEDICINE [place], [place] [phone] Elevated serum creatinine (Primary Dx) Social History Tobacco Use Types Packs/Day Years Used Date Smoking Tobacco: Never Passive Smoke Exposure: Past Smokeless Tobacco: Never Passive Exposure Comments:fa ther smoked in the home Alcohol Use Standard Drinks/Week Comments No 0 (1 standard drink = 0.6 oz pur e alcohol) [facility] Utilities Answer Date Recorded In the past 12 months has th e electric, gas, oil, or water company threatened to shut off services in your home? No 01/28/2024 Overall Financial Resource Strain (CARDIA) Answe r Date Recorded How hard is it for you to pa y for the very basics like food, housing, medical care, and heating? Not hard at all 01/28/2024 PHQ-2 Answer Date Recorded PHQ-2 Score 0 [...] the money to buy more. Never true 01/28/20 24 Within the past 12 months, t he food you bought just didn't last and you didn't have money to get more. Never true 01/28/2024 PRAPARE - Transportation Answer Date Re corded In the past 12 months, has l ack of transportation kept you from medical appointments or from getting medications? No 01/11 In the past 12 months, has l ack of transportation kept you from meetings, work, or from getting things needed for daily living? No 01/28/2024 Housing Stability Vital Sign Answer Tyson e Recorded Unable to Pay for Housing in the Last Year Not o n file 04/24/2023 Number of Places Lived in the Last Year Not on f ile 04/24/2023 In the last 12 months, was t here a time when you did not have a steady place to sleep or slept in a group home (including now)? No 04/24/2023 Housing Stability Vital Sign Answer Tyson e Recorded In the last 12 months, was t here a time when you were not able to pay the mortgage or rent on time? No 01/28/2024 In the past 12 months, how m any times have you moved where you were living? 1 01/28/2024 At any time in the past 12 m [facility], were you homeless or living in a group home (including now)? No 01/28/2024 Comments No Sex and Gender Information Value [...] Recorded In the last 10 days, have johnathon fournier been in contact with someone who was confirmed or suspected to have Coronavirus/COVID-19? No / Unsure 01/28/2024 1:23 PM EDT documented as of this encounter Plan of Treatment Not on file documented as of this encounter Results * (ABNORMAL) Basic metabolic panel (04/17/2024 11:48 AM EDT) Pathologist [facility] Sodium 140 137 - 144 mmol/L 04/17/2024 12:53 PM EDT [facility] Potassium 4.8 3.6 - 5.1 mmol/L 04/17/2024 12:53 PM EDT [facility] Chloride 105 100 - 111 mmol/L 04/17/2024 12:53 PM EDT [facility] CO2 24 23 - 32 mmol/L 04/17/2024 12:53 PM EDT [facility] Anion gap 11 3 - 11 mmol/L 04/17/2024 12:53 PM EDT [facility] BUN 30(H) 8 - 24 mg/dL 04/17/2024 12:53 PM EDT [facility] Creatinine 1.30(H) 0.60 - 1.20 mg/dL 04/17/2024 12:53 PM EDT [facility] Glucose 214(H) 70 - 200 mg/dL 04/17/2024 12:53 PM EDT [facility] Comment: Normal fasting glucose 75-99 mg/dL Impaired fasting glucose 100 - 125 mg/dL Fasting glucose >125 mg/dL - provisional diagnosis of diabetes mellitus Random glucose >= 200 mg/dl is considered diagnostic for diabetes ADA Guidelines: Classification and Diagnosis of Diabetes: Standards of Medical Care in Diabetes - 2020, Diabetes Care 2020; S15-S33. Calcium 10.5(H) 8.4 - 10.2 mg/dL 04/17/2024 12:53 PM EDT [facility] eGFR 43(L) >60 mL/min/1. 73m*2 04/17/2024 12:53 PM EDT [facility] Comment: Calculation based on the Chronic Kidney Disease Epidemiology Collaboration (CKD-EPI) equation refit without adjustment for race. Chronic Kidney Disease less than 60 ml/min/1.73 m2 Kidney Failure less than 15 ml/min/1.73 m2 Age (Years) Average GFR 20 - 29 116 ml/min/1.73 m2 30 - 39 107 ml/min/1.73 m2 40 - 49 99 ml/min/1.73 m2 50 - 59 93 ml/min/1.73 m2 60 - 69 85 ml/min/1.73 m2 70 + 75 ml/min/1.73 m2 Pursuant to [place] Public Act 06-120(1)(b)(1). The 2020 CKD-EPI calculation used to estimate eGFR has only been validated for patients 18 years or older. Blood Venous blood specimen / Unknown Venipuncture / Unknown 04/17/2024 11:48 AM EDT 04/17/2024 11:48 AM EDT us Cony Dillon MD LAB BLOOD ORDERABLES Final Re sult [facility] [address] [place] [address], documented in this encounter Visit Diagnoses Diagnosis Elevated serum creatinine- Primary Other nonspecific findings on examination of blood documented in this encounter Additional Health Concerns Infection Onset Date Last Indicated Resolved Time (Rule out) Influenza 06/07/2024 06/07/2024 024 11:06 PM EDT (Rule out) RSV 06/07/2024 06/07/2024 06/07/2024 11 :06 PM EDT (Rule out) COVID-19 06/07/2024 06/07/2024 06/07/20 24 11:06 PM EDT documented as of this encounter Care Teams Cuffer Relationship Specialty Start Date End Date Cony Dillon MD [address] [place] [address] - [place] [address] PCP - General 10/24/17 11/12/24 Cony Dillon MD 65 [facility] [place] [place] [address] PCP - Insurance Payer PCP 05/18/23 Barbara Olivares MD [address] [place] [id number] PCP - General Family Medicine 11/13/24 Linda Ayon MD [address] [place], [place] [address] [address] Consulting Physician Cardiology 04/19/20 Mary Simon MD [address] [place] [address]-[place] [phone] Consulting Physician Endocrinology 04/19/20 Rm Avery MD [address] [place], [place] [address]ARY [place] [address] Consulting Physician Pulmonary Disease 04/19/20 documented as of this encounter
--- OUTSIDE RECORDS SUMMARY | 2025-06-24 18:17 | XMS_ITS | Encounter Summary ---
Author Organization [facility] Address [address] [place] [address] Care Team Providers Care Poker Room Manager Name Role Phone Cony Dillon MD Primary Care Provider [phone] Linda Ayon MD Unavailable Mary Simon MD Unavailable [phone] MetersRm palomares MD Unavailable [phone] Cony Dillon MD Unavailable [phone] Barbara Olivares MD Primary Care Provider [phone] Reason for Referral * Durable Medical Equipment (Routine) - Closed Specialty Diagnoses / Procedures Referred By Emily t Referred To Contact Home Health Services Diagnoses Closed fracture of hip with routine healing, unspecified laterality, subsequent encounter Procedures Cony Mane MD [address] [place] [address] [place] [address] Phone: tel: fax: Referral ID Status Reason Start Date Expiration Date Visits Re quested Visits Authorized [id number] Closed 10/19/2023 11/22/2024 1 1 Encounter Details Date Type Department Care Team (Late st Contact Info) Description 10/19/2023 Orders Only [facility] of Internal Medicine [address] [place] [phone] Cony Dillon MD [address] [place] [address] [place] [address] Closed fracture of hip with routine healing, unspecified laterality, subsequent encounter (Primary Dx) Social History Tobacco Use Types [...] place to sleep or slept in a [facility] (including now)? No 04/24/2023 Comments No Sex [...] as of this encounter Visit Diagnoses Diagnosis Closed fracture of hip with routine healing, unspecified laterality, subsequent encounter- Primary documented in this encounter Additional Health Concerns Infection Onset Date Last Indicated Resolved Time (Rule out) Influenza 06/07/2024 06/07/2024 024 11:06 PM EDT (Rule out) RSV 06/07/2024 06/07/2024 06/07/2024 11 :06 PM EDT (Rule out) COVID-19 06/07/2024 06/07/2024 06/07/20 24 11:06 PM EDT documented as of this encounter Care Teams Poker Room Manager Relationship Specialty Start Date End Date Cony Dillon MD 65 [facility] [place] [address] PCP - General 10/24/17 11/12/24 Cony Dillon MD [address] [place] [address] [place] [address] PCP - Insurance Payer PCP 05/18/23 Barbara Olivares MD [address] [place] [address] PCP - General Family Medicine 11/13/24 Linda Ayon MD [address] [place] [address] [phone] Consulting Physician Cardiology 04/19/20 Mary Simon MD [address] [place] [address]-[place] [phone] Consulting Physician Endocrinology 04/19/20 Rm Avery MD [address] [facility]-[place] [address] Consulting Physician Pulmonary Disease 04/19/20 documented as of this encounter
--- OUTSIDE RECORDS SUMMARY | 2025-06-24 18:17 | XMS_ITS | Encounter Summary ---
Author Organization [facility] Address [address] [place] [address] Care Team Providers Care Occupational Health Manager Name Role Phone Cony Dillon MD Primary Care Provider Encounter Details Date Type Department Care Team (Late st Contact Info) Description 03/02/2016 Scanned Document [address] [phone] Provider, Generic Social History Tobacco Use Types Packs/Day Years [...] on filedocumented in this encounter Care Teams Occupational Health Manager Relationship Specialty Start Date End Date Cony Dillon MD [address] [place] [address] PCP - General 03/07/16 documented as of this encounter
--- OUTSIDE RECORDS SUMMARY | 2025-06-24 18:17 | XMS_ITS | Encounter Summary ---
Author Organization [facility] Address [address] [place] [address] Care Team Providers Care Ui Lead Developer Name Role Phone Cony Dillon MD Primary Care Provider [phone] Linda Ayon MD Unavailable Mary Simon MD Unavailable [phone] MetersRm palomares MD Unavailable [phone] Cony Dillon MD Unavailable [phone] Barbara Olivares MD Primary Care Provider [phone] Encounter Details Date Type Department Care Team (Late st Contact Info) Description 04/29/2024 Orders Only [facility] Department of Internal Medicine [address] [place] [id number] Cony Dillon MD [address] [place] [address] - INTERNAL MEDICINE [place], [place] [phone] Type 2 diabetes mellitus with both eyes affected by mild nonproliferative retinopathy without macular edema, with long-term current use of insulin (HCC) Social History Tobacco Use Types Packs/Day Years Used Date Smoking Tobacco: Never Passive Smoke Exposure: Past Smokeless Tobacco: Never Passive Exposure Comments:fa ther smoked in the home Alcohol Use Standard Drinks/Week Comments No 0 (1 standard drink = 0.6 oz pur e alcohol) [facility] Utilities Answer Date Recorded In the past 12 months has [employer] electric, gas, oil, or water company threatened [...] place to sleep or slept in a [place] (including now)? No 04/24/2023 Housing Stability Vital Sign Answer Tyson e Recorded In the last 12 months, was t here a time when you were not able to pay the mortgage or rent on time? No 01/28/2024 In the past 12 months, how m any times have you moved where you were living? 1 01/28/2024 At any time in the past 12 m [facility], were you homeless or living in a [place] health [place] facility (including now)? No 01/28/2024 Comments No Sex [...] suspected to have Coronavirus/COVID-19? No / Unsure 04/24/2024 2:08 PM EDT documented as of this encounter Plan of Treatment Not on file documented as of this encounter Visit Diagnoses Diagnosis Type 2 diabetes mellitus with both eyes affected by mild nonproliferative retinopathy without macular edema, with long-term current use of insulin (HCC) documented in this encounter Additional Health Concerns Infection Onset Date Last Indicated Resolved Time (Rule out) Influenza 06/07/2024 06/07/2024 024 11:06 PM EDT (Rule out) RSV 06/07/2024 06/07/2024 06/07/2024 11 :06 PM EDT (Rule out) COVID-19 06/07/2024 06/07/2024 06/07/20 24 11:06 PM EDT documented as of this encounter Care Teams Ui Lead Developer Relationship Specialty Start Date End Date Cony Dillon MD 65 [facility] [place] [address] PCP - General 10/24/17 11/12/24 Cony Dillon MD 65 [facility] [place] [address] PCP - Insurance Payer PCP 05/18/23 Barbara Olivares MD [address] [place] [id number] PCP - General Family Medicine 11/13/24 Linda Ayon MD [address] [place] [address] [phone] Consulting Physician Cardiology 04/19/20 Mary Simon MD [address] [place] [address]-[place] [phone] Consulting Physician Endocrinology 04/19/20 Rm Avery MD [address] [place] [address]-[place] [address] Consulting Physician Pulmonary Disease 04/19/20 documented as of this encounter
--- OUTSIDE RECORDS SUMMARY | 2025-06-24 18:17 | XMS_ITS | Encounter Summary ---
Author Organization [facility] Address [address] [place] [address] Care Team Providers Care Silver Recovery Operator Name Role Phone Cony Dillon MD Primary Care Provider [phone] Linda Ayon MD Unavailable Mary Simon MD Unavailable [phone] MetersRm palomares MD Unavailable [phone] Cony Dillon MD Unavailable [phone] Barbara Olivares MD Primary Care Provider Encounter Details Date Type Department Care Team (Late st Contact Info) Description 08/14/2023 Orders Only [facility] Department of Nephrology [address] [place], [place] [phone] Cony Herman APRN [address] [place], [place] [address] Stage 3a chronic kidney disease (HCC) (Primary Dx); Hyperparathyroidism (HCC) Social History Tobacco Use Types Packs/Day [...] place to sleep or slept in a snf (including now)? No 04/24/2023 Comments No Sex [...] suspected to have Coronavirus/COVID-19? No / Unsure 08/15/2023 9:22 AM EST documented as of this encounter Plan of Treatment Scheduled Orders Name Type Priority Associated Diagnoses Orde r Schedule PTH, INTACT WITHOUT CALCIUM (Q) Lab Routine Stage 3a chronic kidney disease (HCC) Hyperparathyroidism (HCC) 1 Occurrences starting 08/14/2023 until 08/14/2024 documented as of this encounter Results * (ABNORMAL) Intact Parathyroid Hormone (01/28/2024 2:22 PM EDT) PTH 200(H) 15 - 88 pg/mL 01/28/2024 4:06 PM EDT [facility] Blood Venous blood specimen / Unknown Venipuncture / Unknown 01/28/2024 2:22 PM EDT 01/28/2024 2:22 PM EDT Cony Herman CHEESE TESTER LAB BLOOD ORDERABLES Final Result [facility] [address] [place] [address], * Vitamin D 25 hydroxy (08/10/2023 10:27 AM EST) Vit D, 25-Hydroxy 30 >=30 ng/mL 08/14/2023 9:54 AM EST [facility] Comment: Twenty five-hydroxy vitamin D assay measures 100% of 25-OH vitamin D3 and 75% of 25-OH vitamin D2 (plant origin). Current studies recommend supplementation with vitamin D3. <20 ng/mL - indicative of deficiency 20 - 29 ng/mL - suggests insufficiency 30 - 80 ng/mL - optimal >80 ng/mL - possible toxicity but usually only at very high levels. Blood Venous blood specimen / Unknown Venipuncture / Unknown 08/10/2023 10:27 AM EST 08/10/2023 10:27 AM EST Cony Herman APRN LAB BLOOD ORDERABLES NO STA T Final Result Performing Organization Address City/[facility]/ZIP Co de Phone Number [facility] [address] [place] [address], documented in this encounter Visit Diagnoses Diagnosis Stage 3a chronic kidney disease (HCC)- Primary Hyperparathyroidism (HCC) Hyperparathyroidism, unspecified documented in this encounter Additional Health Concerns Infection Onset Date Last Indicated Resolved Time (Rule out) Influenza 06/07/2024 06/07/2024 024 11:06 PM EDT (Rule out) RSV 06/07/2024 06/07/2024 06/07/2024 11 :06 PM EDT (Rule out) COVID-19 06/07/2024 06/07/2024 06/07/20 24 11:06 PM EDT documented as of this encounter Care Teams Silver Recovery Operator Relationship Specialty Start Date End Date Cony Dillon MD 65 [facility] [place] [address] PCP - General 10/24/17 11/12/24 Cony Dillon MD [address] [place] [address] [place] [address] PCP - Insurance Payer PCP 05/18/23 Barbara Olivares MD [address] [place], [place] [phone] PCP - General Family Medicine 11/13/24 Linda Ayon MD [address] [place], [place] [address] [address] Consulting Physician Cardiology 04/19/20 Mary Simon MD [address] [place] [address] [phone] Consulting Physician Endocrinology 04/19/20 Rm Avery MD [address] [place], [place] [address]PULMONARY MEDICINE [place] [phone] Consulting Physician Pulmonary Disease 04/19/20 documented as of this encounter
--- OUTSIDE RECORDS SUMMARY | 2025-06-24 18:17 | XMS_ITS | Encounter Summary ---
Author Organization [facility] Address [address] [place] [address] Care Team Providers Care Billing Collections Specialist Name Role Phone Cony Dillon MD Primary Care Provider [phone] Linda Ayon MD Unavailable Mary Simon MD Unavailable [phone] MetersRm palomares MD Unavailable [phone] Cony Dillon MD Unavailable [phone] Barbara Olivares MD Primary Care Provider [phone] Encounter Details Date Type Department Care Team (Late st Contact Info) Description 11/24/2021 Orders Only [facility] Department of Nephrology [address] [facility] [place] [address] Delmy Mcmullen MD Social History Tobacco Use [...] suspected to have Coronavirus/COVID-19? No / Unsure 11/22/2021 9:59 AM EDT documented as of this encounter Plan [...] documented as of this encounter Care Teams Billing Collections Specialist Relationship Specialty Start Date End Date Cony Dillon MD 65 [facility] [place] [address] PCP - General 10/24/17 11/12/24 Cony Dillon MD 65 [facility] [place] [address] PCP - Insurance Payer PCP 05/18/23 Barbara Olivares MD [address] [place] [address] PCP - General Family Medicine 11/13/24 Linda Ayon MD [address] [facility] [place] [address] Consulting Physician Cardiology 04/19/20 Mary Simon MD 263 [facility] [phone] Consulting Physician Endocrinology 04/19/20 Rm Avery MD [address] [facility] [address] Consulting Physician Pulmonary Disease 04/19/20 documented as of this encounter
--- OUTSIDE RECORDS SUMMARY | 2025-06-24 18:17 | XMS_ITS | Encounter Summary ---
Author Organization [facility] Address [address] [place] [address] Care Team Providers Care Professor Of Forest Planning Name Role Phone Cony Dillon MD Primary Care Provider [phone] Linda Ayon MD Unavailable Mary Simon MD Unavailable [phone] MetersRm palomares MD Unavailable [phone] Cony Dillon MD Unavailable [phone] Barbara Olivares MD Primary Care Provider [phone] Encounter Details Date Type Department Care Team (Late st Contact Info) Description 12/30/2021 Orders Only [facility] Department of Internal Medicine [address] [place], [place] [phone] oCny Dillon MD 65 [facility] - INTERNAL MEDICINE [place], [place] [phone] Renal artery stenosis (HCC) (Primary Dx) Social History Tobacco Use Types Packs/Day Years Used Date Smoking Tobacco: Never Smokeless Tobacco: Never Alcohol Use Standard Drinks/Week Comments No 0 (1 standard drink = 0.6 oz pur e alcohol) PHQ-2 Answer Date Recorded PHQ-2 Score 0 12/21/2021 Exercise Vital Sign Answer Date Recorde d On average, how many days pe r week do you engage in moderate to strenuous exercise (like a brisk walk)? 0 days 12/21/2021 On average, how many minutes do you engage in exercise at this level? 0 min 12/21/2021 Hunger Vital Sign Answer Date Recorded Within the past 12 months, y ou worried that your food would run out before you got the money to buy more. Never true 12/22/19 22 Ran Out of Food in the Last Year Not on file 12/21/2021 PRAPARE - Transportation Answer Date Re corded In the past 12 months, has l ack of transportation kept you from medical appointments or from getting medications? No 12/21/2021 Lack of Transportation (Non-Medical) Not on file 12/21/2021 Comments No Sex and Gender Information Value [...] suspected to have Coronavirus/COVID-19? No / Unsure 12/29/2021 1:26 PM EDT documented as of this encounter Plan of Treatment Not on file documented as of this encounter Visit Diagnoses Diagnosis Renal artery stenosis (HCC)- Primary Atherosclerosis of renal artery documented in this encounter Additional Health Concerns Infection Onset Date Last Indicated Resolved Time (Rule out) Influenza 06/07/2024 06/07/2024 024 11:06 PM EDT (Rule out) RSV 06/07/2024 06/07/2024 06/07/2024 11 :06 PM EDT (Rule out) COVID-19 06/07/2024 06/07/2024 06/07/20 24 11:06 PM EDT documented as of this encounter Care Teams Professor Of Forest Planning Relationship Specialty Start Date End Date Cony Dillon MD [address] [place] [address] - [place] [address] PCP - General 10/24/17 11/12/24 Cony Dillon MD [address] [place] [address] - [place] [address] PCP - Insurance Payer PCP 05/18/23 Barbara Olivares MD [address] [place] [address] PCP - General Family Medicine 11/13/24 Linda Ayon MD [address] [place], [place] [address] [address] Consulting Physician Cardiology 04/19/20 Mary Simon MD [address] [place] [address]-[place] [phone] Consulting Physician Endocrinology 04/19/20 Rm Avery MD [address] [place] [address]-[place] [address] Consulting Physician Pulmonary Disease 04/19/20 documented as of this encounter
--- OUTSIDE RECORDS SUMMARY | 2025-06-24 18:17 | XMS_ITS | Clinical Summary ---
Author Organization [facility] Address [address] [place] [address] Care Team Providers Care Coke Handling Supervisor Name Role Phone Cony Dillon MD Primary Care Provider [phone] Allergies Active Allergy Reactions Criticality Noted Date Comments Lisinopril 09/01/2023 Medications Medication Sig Dispensed Refills Start Date End Date Status metFORMIN (GLUCOPHAGE) tablet 1000 mg Take 1 tablet (1,000 mg total) by mouth 2 (two) times a day. 0 03/28/2016 Active carBAMazepine (TEGretol) 200 MG tablet Take 1 tablet (200 mg total) by mouth daily. 0 11/18/2022 Active nateglinide (STARLIX) tablet 120 mg Take 1 tablet (120 mg total) by mouth 2 (two) times a day. 0 03/28/2016 Active DULoxetine (CYMBALTA) DR capsule 30 mg Take 1 capsule (30 mg total) by mouth daily. 0 08/13/2023 Active empagliflozin (Jardiance) 10 MG tablet Take 1 tablet (10 mg total) by mouth daily. 0 09/19/2022 Active ketoconazole (NIZORAL) 2 % cream Apply to affected area twice daily 0 03/10/2016 Active Epinastine HCl 0.05 % ophthalmic solution Inject 1 drop into the eye 2 (two) times a day. 0 12/23/2017 Active Multiple Vitamin (Multi-Vitamin) tablet Take 1 tablet by mouth daily. 0 01/01/2017 Active famotidine (PEPCID) 20 MG tablet Take 2 tablets (40 mg total) by mouth daily. 0 Active Calcium Carb-Cholecalciferol (Calcium 600+D) 600-10 MG-MCG TABS Take 1 tablet by mouth 2 (two) times a day. 30 tablet 0 09/03/2023 Active rosuvastatin (CRESTOR) tablet 40 mg Take 1 tablet (40 mg total) by mouth daily. 0 Active Active Problems Problem Noted Date Diagnosed Date Closed fracture of neck of right femur with rout ine healing 09/01/2023 Social History Tobacco Use Types Packs/Day Years Used Date Smoking Tobacco: Former Cigarettes Smokeless Tobacco: Never Tobacco Cessation:Counseling Given: Not Answered Alcohol Use Standard Drinks/Week Comments Never 0 (1 standard drink = 0.6 oz pur e alcohol) Sex and Gender Information Value Date Recorded Sex Assigned at Female 09/01/2023 5:45 PM EST Gender Identity Not on file Sexual Orientation Not on file Job Start Date Occupation Industry Not on file Not on file Not on file Last Filed Vital Signs Vital Sign Reading Time Taken Comments Blood Pressure 148/83 09/18/2023 10:24 AM EST Pulse 92 09/18/2023 10:24 AM EST Temperature 36.8 C (98.3 F) 09/03/2023 7:12 AM EST Respiratory Rate 16 09/03/2023 7:12 AM EST Oxygen Saturation 96% 09/03/2023 7:12 AM EST Inhaled Oxygen Concentration - - Weight 55.4 kg (122 lb 3.2 oz) 09/18/2023 10:24 AM EST Height 149.9 cm (4' 11 ) 09/18/2023 10:24 AM EST Body Mass Index 24.68 09/18/2023 10:24 AM EST Plan of Treatment Health Maintenance Due Date Last Done Comments Hepatitis C Screening 1949 Depression Screening 1961 Diabetes: Eye Exam (No Retinopathy) 11/24/1967 Diabetes: Foot Exam 11/24/1967 Diabetes: Microalbumin Test 11/24/1967 Hemoglobin A1C Due 11/24/1967 Preventative Health Evaluation 11/24/1967 Colon Cancer Screening (Colonoscopy) 1994 Fall Risk Assessment 2014 Osteoporosis Screening (DEXA Scan) 2014 Shingrix-Zoster Vaccine (2 of 2) 06/26/2020 05/01/2020 DTap / Tdap / Td (2 - Td or Tdap) 08/24/2024 08/24/2014 RSV Adult > 60+ Yrs or (1 - 1-dose 75+ series) 2024 COVID-19 Vaccine (2 - season) 2025 06/01/2023 Influenza Vaccine (#1) 2025 3, 06/15/2022, 06/17/2021, Additional history exists Pneumococcal Vaccine Completed 12/21/2021, 01/01/2017, 02/28/2016, Additional history exists Hepatitis B Vaccines Aged Out No long er eligible based on patient's age to complete this topic RSV Ped < 20 months Aged Out No longe r eligible based on patient's age to complete this topic Medical Devices Implanted Type Area Vb Net Programmer Device Identifier Shelf Expiration Date Model / Serial / Lot Screw Shelli Ti 6.5x90mm Thrd 20 Asnis Iii Stry-Tram [id number] - [id number] Implanted:Qty: 1 on 09/02/2023 by Uziel Del Rio MD at [facility] Location Right: Femur [employer]UMA [id number] / / Screw Shelli Ti [id number] Asnis Iii Stry-Tram [id number] - [id number] Implanted:Qty: 2 on 09/02/2023 by Uziel Del Rio MD at [facility] Location Right: Femur [employer] [id number] / / Advance Directives For more information, please contact: [phone] Latest Code Status on File Code Status Date Activated Date Inactivated Comments Full Code 09/02/2023 11:12 AM 09/03/2023 8:31 PM This code status was ascertained in the following way: discussion with patient . Code Status History Code Status Date Activated Date Inactivated Comments Full Code 09/01/2023 9:14 PM 09/02/2023 11:12 AM This code status was ascertained in the following way: TBD. . Care Teams Coke Handling Supervisor Relationship Specialty Start Date End Date Cony Dillon MD [address] [place] [id number] PCP - General Internal Medicine 09/18/23
--- OUTSIDE RECORDS SUMMARY | 2025-06-24 18:17 | XMS_ITS ---
Author Organization Unknown ENCOUNTERS Encounter Performer Location Date Diagnosis Diagnosis Status Post Acute Care [address] [id number] Home *Note: Encounters from your own facility or health system may be excluded. Allergies, Adverse Reactions, Alerts Allergen Type Severity Identification Date Medications Name Date Quantity Days Supplied GPI Number
--- OUTSIDE RECORDS SUMMARY | 2025-06-24 18:17 | XMS_ITS | Encounter Summary ---
Author Organization [facility] Address [address] [place] [id number] Care Team Providers Care Apigee Developer Name Role Phone Cony Dillon MD Primary Care Provider Encounter Details Date Type Department Care Team (Late st Contact Info) Description 03/15/2016 Scanned Document [facility] Urolog[facility] Surgery [address] [place] [address] [place] [address] Yung Proctor MD Social History Tobacco Use [...] on filedocumented in this encounter Care Teams Apigee Developer Relationship Specialty Start Date End Date Cony Dillon MD [address] [place] [id number] PCP - General 03/07/16 documented as of this encounter
--- OUTSIDE RECORDS SUMMARY | 2025-06-24 18:17 | XMS_ITS | Encounter Summary ---
Author Organization [facility] Address [address] [place] [address] Care Team Providers Care Traffic Control Flagger Name Role Phone Cony Dillon MD Primary Care Provider [phone] Linda Ayon MD Unavailable Mary Simon MD Unavailable [phone] MetersRm palomares MD Unavailable [phone] Cony Dillon MD Unavailable [phone] Barbara Olivares MD Primary Care Provider [phone] Encounter Details Date Type Department Care Team (Late st Contact Info) Description 09/29/2021 Orders Only [facility] Department of Internal Medicine [address] [place] [address] Uriel Swenson MD Upper respiratory tract infection, unspecified type (Primary [...] Type Priority Associated Diagnoses Orde r Schedule SARS-CoV-2, NAAT Microbiology Routine Upper respiratory tract infection, unspecified type 1 Occurrences starting 09/29/2021 until 03/29/2023 SARS-CoV-2 RNA (COVID-19), Qualitative NAAT(Q) Lab Routine Upper respiratory tract infection, unspecified type 1 Occurrences starting 09/29/2021 until 09/29/2022 documented as of this encounter Visit Diagnoses Diagnosis Upper respiratory tract infection, unspecified type- Primary documented in this encounter Additional Health Concerns Infection Onset Date Last Indicated Resolved Time (Rule out) COVID-19 09/29/2021 09/29/2021 10/03/19 22 10:08 PM EST (Rule out) Influenza 06/07/2024 06/07/2024 024 11:06 PM EDT (Rule out) RSV 06/07/2024 06/07/2024 06/07/2024 11 :06 PM EDT (Rule out) COVID-19 06/07/2024 06/07/2024 06/07/20 24 11:06 PM EDT documented as of this encounter Care Teams Traffic Control Flagger Relationship Specialty Start Date End Date Cony Dillon MD [address] [facility] [place] [address] PCP - General 10/24/17 11/12/24 Cony Dillon MD [address] [facility] [place] [place] [address] PCP - Insurance Payer PCP 05/18/23 Barbara Olivares MD [address] [place] [id number] PCP - General Family Medicine 11/13/24 Linda Ayon MD [address] [place] [address] [phone] Consulting Physician Cardiology 04/19/20 Mary Simon MD [address] [place] [address]-[place] [phone] Consulting Physician Endocrinology 04/19/20 Rm Avery MD [address] [place] [address]-[place] [address] Consulting Physician Pulmonary Disease 04/19/20 documented as of this encounter
--- OUTSIDE RECORDS SUMMARY | 2025-06-24 18:17 | XMS_ITS | Encounter Summary ---
Author Organization [facility] Address [address] [place] [address] Care Team Providers Care Barge Captain Name Role Phone Cony Dillon MD Primary Care Provider [phone] Linda Ayon MD Unavailable Mary Simon MD Unavailable [phone] MetersRm palomares MD Unavailable [phone] Cony Dillon MD Unavailable [phone] Barbara Olivares MD Primary Care Provider [phone] Reason for Referral * Orthopedic (Routine) - Closed Specialty Diagnoses / Procedures Referred By Emily randhawa Referred To Contact Orthopedic Surgery Diagnoses Chronic left shoulder pain Mackenzie Dolan FNP [address] [facility] [address] Phone: tel: fax: [facility] Department of Orthopedic Surgery [address] [place] [address] Phone: tel: fax: Referral ID Status Reason Start Date Expiration Date V isits Requested Visits Authorized [id number] Closed Consult 08/16/2023 09/19/2024 1 1 Encounter Details Date Type Department Care Team (Late st Contact Info) Description 08/16/2023 Orders Only [facility] Department of Internal Medicine [address] [place] [id number] Mackenzie Dolan, [employer] [address] [facility] INTERNAL MEDICINE [place], [facility] Chronic left shoulder pain (Primary Dx) Social History Tobacco Use Types [...] place to sleep or slept in a penitentiary (including now)? No 04/24/2023 Comments No Sex [...] of this encounter Plan of Treatment Scheduled Referrals Name Type Priority Associated Diagnoses Order Schedule Ambulatory referral to Orthopedics Outpatient Referral Routine Chronic left shoulder pain Ordered: 08/16/2023 documented as of this encounter Visit Diagnoses Diagnosis Chronic left shoulder pain- Primary Pain in joint, shoulder region documented in this encounter Additional Health Concerns Infection Onset Date Last Indicated Resolved Time (Rule out) Influenza 06/07/2024 06/07/2024 024 11:06 PM EDT (Rule out) RSV 06/07/2024 06/07/2024 06/07/2024 11 :06 PM EDT (Rule out) COVID-19 06/07/2024 06/07/2024 06/07/20 24 11:06 PM EDT documented as of this encounter Care Teams Barge Captain Relationship Specialty Start Date End Date Cony Dillon MD [address] [facility] [place] [address] PCP - General 10/24/17 11/12/24 Cony Dillon MD [address] [place] [address] [place] [address] PCP - Insurance Payer PCP 05/18/23 Barbara Olivares MD [address] [place] [address] PCP - General Family Medicine 11/13/24 Linda Ayon MD [address] [place] [address] [phone] Consulting Physician Cardiology 04/19/20 Mary Simon MD [address] [place] [address] [address] Consulting Physician Endocrinology 04/19/20 Rm Avery MD [address] [facility] [address] Consulting Physician Pulmonary Disease 04/19/20 documented as of this encounter
== END 2025-06-24 15:12 | disposition home or self-care (01) ==
LOC: HO.HKAE 14:56
PROVIDERS: PCP Student in an Organized Health Care Education/Training Program; Visit Provider Internal Medicine Hypertension Specialist
DX: I70.1 Atherosclerosis of renal artery (principal); I10 Essential (primary) hypertension; N18.30 Chronic kidney disease, stage 3 unspecified
CPT/HCPCS: 99214

== ENCOUNTER → 2025-06-24 14:55 | Outpatient (BNVA) | payer MEDICARE, SELFPAY | PROVIDERS: PCP Student in an Organized Health Care Education/Training Program; Visit Provider Internal Medicine Hypertension Specialist | DX: I10 Essential (primary) hypertension (principal); N18.30 Chronic kidney disease, stage 3 unspecified; I70.1 Atherosclerosis of renal artery | CPT/HCPCS: 99212 ==